=== PATIENT | female | born 1990 | race Caucasian/White ===

== ENCOUNTER 2019-01-11 19:58 | Emergency (ER) | payer MEDICAID ==
[~2019-01-11] VITALS: Ht 165.1 cm; Wt 51.7 kg
--- NOTE | 2019-01-11 20:10 | NUR ---
BIB [facility] FOR DRUG OD POSSIBLY METH? PT CURRENTLY. SLEEPING AROUSES TO STERNAL RUB. PLACED ON A MONITOR . VSS. WILL CONT TO MONITOR ,
[2019-01-11 20:37] LABS: BASOPHILS % (AUTO) 0.7 % (0.0-2.0); EOSINOPHILS % (AUTO) 2.4 % (0.0-6.0); HEMATOCRIT 37 % (33-45); HEMOGLOBIN 12.1 g/dL (11.5-14.8); LYMPHOCYTES % (AUTO) 22.9 % (20.0-44.0); MEAN CORPUSCULAR HGB CONC 33 g/dl (31.0-36.0); MEAN CORPUSCULAR VOLUME 87 fL (82-100); MONOCYTES # (AUTO) 0.4 /CMM (0.1-1.30); MONOCYTES % (AUTO) 8.2 % (2.0-12.0); NEUTROPHILS % (AUTO) 65.8 % (43.0-81.0); PLATELET COUNT (AUTO) 248 /CMM (150-450); RED BLOOD CELL COUNT(AUTO) 4.25 MIL/uL (4.0-5.2); WHITE BLOOD COUNT (AUTO) 4.6 K/uL (4.3-11.0)
--- NOTE | 2019-01-11 20:39 | NUR ---
URINE COLLECTED AND ASENT TO THE LAB
[2019-01-11 20:42] LABS: APPEARANCE,URINE Slightly Cloudy (CLEAR); BILIRUBIN,URINE Negative (NEGATIVE); BLOOD, URINE Negative Ery/uL (NEGATIVE); COLOR,URINE Yellow (YELLOW); KETONES,URINE Negative (NEGATIVE); LEUKOCYTE ESTERASE ,URINE Trace (NEGATIVE); NITRITE, URINE Positive (NEGATIVE); PH,URINE 7.5 (5.0-8.0); PROTEIN,URINE Negative (NEGATIVE); UGLUCOSE Negative (NEGATIVE); UROBILINOGEN,URINE 0.2 EU/dL (0.2)
[2019-01-11 20:44] LABS: CALCIUM, SERUM 8.2 mg/dL (8.5-10.1); CARBON DIOXIDE 29 mmol/L (21-32); CHLORIDE 106 mmol/L (98-107); CREATININE 0.7 mg/dL (0.6-1.3); GLUCOSE 97 mg/dL (74-106); SODIUM SERUM 143 mmol/L (136-145); UREA NITROGEN, BLOOD 11 mg/dL (7-18)
[2019-01-11 20:53] LABS: BACTERIA,URINE Many /HPF (None Seen); SQUAMOUS EPITHELIAL CELL,UR Many /HPF (None Seen)
[2019-01-11 20:54] LABS: RBC,URINE 0-2 /HPF (0-2)
[2019-01-11 20:56] LABS: ALANINE AMINOTRANSFERASE 24 U/L (12-78); ALBUMIN 2.9 g/dL (3.4-5.0); ALCOHOL, BLOOD < 3 mg/dL (0-0); ALKALINE PHOSPHATASE 68 U/L (46-116); ASPARTATE AMINOTRANSFERASE 17 U/L (15-37); BILIRUBIN,DIRECT 0.1 mg/dL (0.0-0.2); BILIRUBIN,TOTAL 0.1 mg/dL (0.2-1.0); TOTAL PROTEIN, SERUM 6.4 g/dL (6.4-8.2)
[2019-01-11 20:57] LABS: SALICYLATE 0.9 mg/dL (2.8-20.0)
[2019-01-11 20:58] LABS: ACETAMINOPHEN < 2 ug/ml (10-30)
--- NOTE | 2019-01-11 22:36 | NUR ---
PT W/ EPIOSDES OF AWAKENESS. ALERT . NOT COMPLETELY COHERENT. ABLE TO PROVIDE HER FIRST AND LAST NAME BUT DOES NOT REMEMBER HER . BREATHING EVENLY. NO DISTRESS. REMAINED ON CLOSE MONITORING
[2019-01-11] MEDS ORDERED: ACETAMINOPHEN 325 MG TABLET PO ONE (23:30)
[2019-01-11] MEDS ORDERED: ACETAMINOPHEN ES 500 MG TABLET ONE (23:32)
--- NOTE | 2019-01-12 00:04 | NUR ---
pt was picked up for CT
--- NOTE | 2019-01-12 00:12 | NUR ---
BACK FROM CT
[2019-01-12] MEDS ORDERED: KETOROLAC TROMETHAMINE INJ 30 MG/ML VIAL ONE (00:52)
[2019-01-12] MEDS ORDERED: KETOROLAC TROMETHAMINE INJ 30 MG/ML VIAL IV ONE (01:00)
--- NOTE | 2019-01-12 01:02 | NUR ---
PT WALKED OUT OF BE IN STABLE CONDITION AND STEADY GAIT AND CALLED HER BOY FRIEND TO PICK HER UP.
--- NOTE | 2019-01-12 01:32 | NUR ---
IV removed. Catheter intact and site benign. Pressure and 4x4 applied to site. No bleeding noted.Patient discharged to home in stable condition. rx and Written and verbal after care instructions given. Patient verbalized understanding of instruction. pt was picked up by her boy friend and walked out in steady gait.
[2019-01-12 01:42] VITALS: BP 118/76
== END 2019-01-12 01:32 | disposition home or self-care (01) ==
LOC: ER 20:07 → EDBD 20:07 → ER 01-12 01:32
DX: S09.8XXA Other specified injuries of head, initial encounter (principal); R41.82 Altered mental status, unspecified; N39.0 Urinary tract infection, site not specified; F14.10 Cocaine abuse, uncomplicated; F19.10 Other psychoactive substance abuse, uncomplicated; E72.89 Other specified disorders of amino-acid metabolism; W18.39XA Other fall on same level, initial encounter; Y93.89 Activity, other specified; Y92.89 Other specified places as the place of occurrence of the external cause; Y99.8 Other external cause status
CPT/HCPCS: 36415; 70450; 80048; 80076; 80305; 80307; 80329; 81001; 84702; 85025; 87077; 87086; 87186; 96374; 99284; G0480; J1885; 81000-TC